=== PATIENT | male | born 1980 | race Caucasian/White ===

== ENCOUNTER 2017-11-15 16:41 | Emergency (ER) | payer MEDICAID, OTHER ==
[2017-11-15] MEDS ORDERED: Lactated Ringers 1,000 ML IV ONE ×2 (17:06→18:51)
[2017-11-15] MEDS ORDERED: Ketorolac 30 MG/ML SDV IVPUSH ONE (18:12)
--- NOTE | 2017-11-15 19:13 | EDM.PDOC ---
<Lorena Cruz M - Last Filed: 11/15/17 19:02> ED HPI GENERAL MEDICAL PROBLEM - General Chief Complaint: Exposure to Heat or Cold Stated Complaint: [facility] Time Seen by Provider: 11/15/17 18:15 Source of Information: Reports: Patient History Limitations: Reports: No Limitations - History of Present Illness INITIAL COMMENTS - FREE TEXT/NARRATIVE: Patient is brought in by ambulance today for complaint of dehydradtion. 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 He worked for 10 hours yesterday and 8 hours today. Around noon today he had an abdominal cramp. He then went to lie down in the air conditioning for 20 minutes. Around 1500 he developed cramps all over his body, he fell down and was unable to move. Paramedics that were working nearby moved him into the shade and placed ice packs in his axillae. After 30 minutes he was still cramping so the paramedics called EMS. Patient has not urinated since yesterday despite drinking plenty of water. Associated symptoms include confusion, nausea, dizziness, and muscle cramps. Patient denies vomiting, diarrhea, or syncope. Location: Reports: Abdomen, Back, Upper Extremity, Left, Upper Extremity, Right , Lower Extremity, Left, Lower Extremity, Right Quality: Reports: Other (cramping) Severity: Moderate Context: Reports: Activity Associated Symptoms: Reports: Confusion, Diaphoresis, Weakness. Denies: Fever/ Chills Treatments [employer]: Reports: Cold Therapy Generalized Pain Score (Numeric/FACES): 5 - Related Data Allergies Allergy/AdvReac Type Severity Reaction Status Date / Time Penicillins Allergy Difficulty Verified 11/15/17 17:08 Breathing Home Meds: Home Meds . [No Known Home Meds] 11/15/17 [History] Past Medical History - Past Health History Medical/Surgical History: Denies Medical/Surgical History Social & Family History - Tobacco Use Smoking Status *Q: Current Every Day Smoker Years of Tobacco use: 20 Packs/Tins Daily: 1 - Recreational Drug Use Recreational Drug Use: No ED ROS GENERAL - Review of Systems Constitutional: Reports: No Symptoms, Weakness. Denies: Fever, Chills Respiratory: Reports: No Symptoms. Denies: Shortness of Breath, Cough Cardiovascular: Denies: Chest Pain, Edema GI/Abdominal: Denies: Abdominal Pain, Diarrhea, Nausea, Vomiting : Reports: Other (oligouria) ED EXAM, GENERAL - Physical Exam Exam Limited By: No Limitations General Appearance: Alert, WD/WN, No Apparent Distress Respiratory/Chest: No Respiratory Distress, Lungs Clear, Normal Breath Sounds, No Accessory Muscle Use, Chest Non-Tender Cardiovascular: Normal Peripheral Pulses, Regular Rate, Rhythm, No Edema, No Murmur GI/Abdominal: Normal Bowel Sounds, Soft, Non-Tender, No Distention Skin Exam: Warm, Dry, Intact, Normal Color, No Rash Course - Vital Signs Last Recorded V/S: Last Vital Signs Temp 98.7 F 11/15/17 17:08 Pulse 90 11/15/17 17:08 Resp 20 11/15/17 17:08 BP 168/98 H 11/15/17 17:08 Pulse Ox 100 11/15/17 17:08 Orthostatic Blood Pressure [ 148/108 Standing] Orthostatic Blood Pressure [ 132/93 Sitting] Orthostatic Blood Pressure [ 154/106 Supine] - Orders/Labs/Meds Labs: Laboratory Tests 11/15/17 11/15/17 Range/Units 17:12 17:12 WBC 11.65 H (4.23-9.07) K/mm3 RBC 5.33 (4.63-6.08) M/mm3 Hgb 15.7 (13.7-17.5) gm/L Hct 46.2 (40.1-51.0) % MCV 86.7 (79.0-92.2) fl MCH 29.5 (25.7-32.2) pg MCHC 34.0 (32.2-35.5) g/dl RDW Std Deviation 45.2 H (35.1-43.9) fL Plt Count 217 (163-337) K/mm3 MPV 10.5 (9.4-12.3) fl Neut % (Auto) 72.2 H (34.0-67.9) % Lymph % (Auto) 18.4 L (21.8-53.1) % Hernando % (Auto) 7.3 (5.3-12.2) % Eos % (Auto) 1.4 (0.8-7.0) Baso % (Auto) 0.4 (0.1-1.2) % Neut # (Auto) 8.41 H (1.78-5.38) K/mm3 Lymph # (Auto) 2.14 (1.32-3.57) K/mm3 [place] # (Auto) 0.85 H (0.30-0.82) K/mm3 Eos # (Auto) 0.16 (0.04-0.54) K/mm3 Baso # (Auto) 0.05 (0.01-0.08) K/mm3 Sodium 135 L (136-145) mEq/L Potassium 3.7 (3.5-5.1) mEq/L Chloride 99 (98-107) mEq/L Carbon Dioxide 23 (21-32) mEq/L Anion Gap 16.7 H (5-15) BUN 13 (7-18) mg/dL Creatinine 1.3 (0.7-1.3) mg/dL Est Cr Clr Drug Dosing 81.11 mL/min Estimated GFR (MDRD) > 60 (>60) mL/min BUN/Creatinine Ratio 10.0 L (14-18) Glucose 106 (74-106) mg/dL Calcium 9.5 (8.5-10.1) mg/dL Magnesium 1.9 (1.8-2.4) mg/dl Total Bilirubin 0.7 (0.2-1.0) mg/dL AST 46 H (15-37) U/L ALT 54 (16-63) U/L Alkaline Phosphatase 102 (46-116) U/L Total Protein 8.6 H (6.4-8.2) g/dl Albumin 4.5 (3.4-5.0) g/dl Globulin 4.1 gm/dL Albumin/Globulin Ratio 1.1 (1-2) Meds: Medications Discontinued Medications Generic Name Dose Route Start Last Admin Trade Name Freq PRN Reason Stop Dose Admin Lactated Ringer's 1,000 mls @ 999 mls/hr 11/15/17 17:06 11/15/17 17:11 Ringers, Lactated IV 11/15/17 18:06 999 mls/hr .BOLUS ONE Administration Lactated Ringer's 1,000 mls @ 999 mls/hr 11/15/17 18:51 11/15/17 19:13 Ringers, Lactated IV 11/15/17 19:51 999 mls/hr .BOLUS ONE Administration Ketorolac Tromethamine 30 mg 11/15/17 18:12 11/15/17 18:20 Toradol IVPUSH 11/15/17 18:13 30 mg ONETIME ONE Administration Departure - Departure Disposition: Home, Self-Care 01 Clinical Impression: Dehydration - Discharge Information Instructions: Dehydration, Adult, [id number] Referrals: PCP,None [Primary Care Provider] - Forms: ED Department Discharge, ED Return to Work/School Form Additional Instructions: Make sure you're drinking plenty of fluids. Drink Gatorade, Powerade and water. Take [id number] Tylenol or Motrin as needed for discomfort. Follow-up with your Primary care provider as needed. Make sure you get plenty of rest tonight. Avoid alcohol the next 2-3 days as you recuperate. Please return to the ER if your symptoms change or worsen. <Ivette Murrell - Last Filed: 11/15/17 23:32> ED HPI GENERAL MEDICAL PROBLEM - History of Present Illness INITIAL COMMENTS - FREE TEXT/NARRATIVE: I have seen the patient and agree with the HPI as documented by Lorena ScottS. Additionally, patient reports me on Saturday he drove from [place] to [place]. He states that he is not working very hard he also did not drink much fluid. Patient also reports that last night he had about 4 beers. ED ROS GENERAL - Review of Systems Review Of Systems: See Below ED EXAM, GENERAL - Physical Exam Exam: See Below Neurological: Alert, Oriented, Normal Cognition Psychiatric: Normal Affect, Normal Mood Course - Re-Assessments/Exams Free Text/Narrative Re-Assessment/Exam: 11/15/17 18:28 I seen the patient and agree with the HPI, ROS and PE as documented by JOANNE Sanz Examined the patient. He is feeling improved after the two Bags of fluid. Will give him a third bag of fluid. He has urinated but continues to have some symptoms. 11/15/17 19:47 checked on The Patient. He Is on His Third bag of Fluids. He Is Feeling Greatly Improved. toradol has Helped with the Muscle Cramps. He Does Feel Slightly Sore. Headache Resolved. Will Discharge Home after the Bag of Fluids Is Complete. Discharge Instructions As Documented. Departure - Departure Time of Disposition: 19:48 Condition: Fair
== END 2017-11-15 20:17 | disposition home or self-care (01) ==
LOC: JD.ED 16:41
DX: E86.0 Dehydration (principal); F17.210 Nicotine dependence, cigarettes, uncomplicated; Z88.0 Allergy status to penicillin
CPT/HCPCS: 36415; 80053; 83735; 85025; 96361; 96374; 99284; J1885; J7120